=== PATIENT | male | born 1965 | race African-American/Black ===

== ENCOUNTER 2019-06-17 13:41 | Emergency (ER) | payer BC ==
[~2019-06-17] VITALS: Ht 190.5 cm; Wt 70.3 kg
[2019-06-17] MEDS ORDERED: ATRIPLA TABLET1 EACH PO (13:53)
[2019-06-17] MEDS ORDERED: PROAIR HFA8.5 GM INH (13:54)
[2019-06-17] MEDS ORDERED: IBUPROFEN 200200 M1 PO (13:54)
[2019-06-17] MEDS ORDERED: FLOVENT HFA12 G1 INH (13:54)
[2019-06-17 14:39] LABS: ABSOLUTE EOSINOPHILS 0.2 thou/uL (0.0-0.7); ABSOLUTE LYMPHOCYTES 2.2 thou/uL (0.8-5.3); ABSOLUTE MONOCYTES 0.3 thou/uL (0.0-1.2); ABSOLUTE NEUTROPHILS 1.2 thou/uL (1.6-8.1); BASOPHILS 1.2 %; EOSINOPHILS 5.9 %; HEMATOCRIT 38.8 % (42.0-52.0); HEMOGLOBIN 13.7 gm/dL (14.0-18.0); LYMPHOCYTES 53.6 %; MCH 37.2 pg (26.0-34.0); MCHC 35.4 g/dL (28.0-37.0); MCV 105.1 fL (80.0-100.0); MONOCYTES 8.6 %; MPV 8.2 fl. (7.2-11.1); NUCLEATED RBCS 0 /100WBC; PLATELET COUNT* 218 thou/uL (150-400); POLYS 30.7 %; RBC 3.69 mil/uL (4.50-6.00); RDW-CV 12.5 % (10.5-14.5)
[2019-06-17 14:47] LABS: CALCIUM 8.6 mg/dL (8.5-10.1); POTASSIUM 3.7 mmol/L (3.5-5.1)
[2019-06-17 14:55] LABS: TOTAL BILIRUBIN 0.3 mg/dL (<0.1-1.0)
[2019-06-17] MEDS ORDERED: TYLENOL WITH CO1 TA1 PO (15:02)
[2019-06-17] MEDS ORDERED: FLEXERIL PO (15:02)
[2019-06-17] MEDS ORDERED: LIDODERM1 EACH TOP (15:02)
[2019-06-17] MEDS ORDERED: LORATIDINE 10 M10 M1 PO (15:02)
[2019-06-17 15:10] VITALS: BP 129/78
--- NOTE | 2019-06-18 08:50 | EKG ---
[place] [address] ELECTROCARDIOGRAM REPORT Name: BLANCA HOPE Room: [facility]#: [id number] Admission: 06/17/19 Attend Phys: Discharge: 06/17/19 Date of : 67 Date of Service: 06/17/19 1348 Report #: [id number] THIS REPORT FOR: //name// [facility] ED Test Date: 2019-06-17 Test Time: 13:48:03 Pat Name: BLANCA HOPE Department: Room: Gender: Tearer: [facility] : 1965 Requested By: Vin Henriquez Order Number: [id number] MD: Vicente Gallo Measurements Intervals [place] Rate: 59 P: 53 ND: 164 QRS: 75 QRSD: 83 T: 67 QT: 380 QTc: 377 Interpretive Statements Sinus rhythm Consider left ventricular hypertrophy No previous ECG available for comparison Electronically Signed On 06-18-2019 8:48:42 CDT by Vicente Gallo [email or web address] <ELECTRONICALLY SIGNED> By: Vicente Gallo MD, [facility] 06/18/19 0848 1348 1348 Vicente Gallo MD, FACC /EPI
== END 2019-06-17 15:00 | disposition home or self-care (01) ==
LOC: M.ERS 13:41
PROVIDERS: Physician Assistant
DX: M54.6 Pain in thoracic spine (principal); M79.18 Myalgia, other site; J45.909 Unspecified asthma, uncomplicated

== ENCOUNTER 2019-07-03 08:58 | Emergency (ER) | payer BC ==
[~2019-07-03] VITALS: Ht 182.9 cm; Wt 71.7 kg
[~2019-07-03 08:58] MED LIST: ATRIPLA TABLET1 EACH PO; FLEXERIL PO; FLOVENT HFA12 G1 INH; IBUPROFEN 200200 M1 PO; LIDODERM1 EACH TOP; LORATIDINE 10 M10 M1 PO; PROAIR HFA8.5 GM INH; TYLENOL WITH CO1 TA1 PO
[2019-07-03 09:52] LABS: ABSOLUTE EOSINOPHILS 0.1 thou/uL (0.0-0.7); ABSOLUTE LYMPHOCYTES 1.2 thou/uL (0.8-5.3); ABSOLUTE MONOCYTES 0.3 thou/uL (0.0-1.2); ABSOLUTE NEUTROPHILS 2.2 thou/uL (1.6-8.1); BASOPHILS 1.2 %; EOSINOPHILS 2.8 %; HEMATOCRIT 42.5 % (42.0-52.0); HEMOGLOBIN 14.8 gm/dL (14.0-18.0); LYMPHOCYTES 30.9 %; MCH 36.5 pg (26.0-34.0); MCHC 34.7 g/dL (28.0-37.0); MONOCYTES 6.7 %; MPV 8.2 fl. (7.2-11.1); NUCLEATED RBCS 0 /100WBC; PLATELET COUNT* 229 thou/uL (150-400); POLYS 58.4 %; RBC 4.05 mil/uL (4.50-6.00); RDW-CV 12.6 % (10.5-14.5); WBC 3.8 thou/uL (4.0-11.0)
[2019-07-03 10:05] LABS: CALCIUM 8.7 mg/dL (8.5-10.1); CREATININE 1.1 mg/dL (0.6-1.3); POTASSIUM 3.9 mmol/L (3.5-5.1)
[2019-07-03 10:09] LABS: ALBUMIN 4.1 g/dL (3.4-5.0); TOTAL BILIRUBIN 0.3 mg/dL (<0.1-1.0); TOTAL PROTEIN 7.5 g/dL (6.4-8.2)
[2019-07-03] MEDS ORDERED: ZOFRAN ODT4 MG DISSOLVE (10:22)
[2019-07-03 10:41] VITALS: BP 136/65
--- NOTE | 2019-07-03 14:34 | EKG ---
[place] [address] ELECTROCARDIOGRAM REPORT Name: BLANCA HOPE Room: [facility]#: [id number] Admission: 07/03/19 Attend Phys: Discharge: 07/03/19 Date of : 67 Date of Service: 07/03/19 0934 Report #: [id number] THIS REPORT FOR: //name// [facility] ED Test Date: 2019-07-03 Test Time: 09:34:41 Pat Name: BLANCA HOPE Department: Room: Gender: [employer]: [facility] [place] : 1965 Requested By: Carlos Manuel Voss Order Number: [id number] MD: Vicente Gallo Measurements Intervals [place] Rate: 53 P: 24 RI: 176 QRS: 67 QRSD: 85 T: 56 QT: 424 QTc: 399 Interpretive Statements Sinus rhythm Consider left ventricular hypertrophy Baseline wander in lead(s) V3 Compared to ECG 06/17/2019 13:48:03 No significant changes Electronically Signed On 07-03-2019 14:32:43 CDT by Vicente Gallo [email or web address] <ELECTRONICALLY SIGNED> By: Vicente Gallo MD, [facility] 07/03/19 1432 0934 0934 Vicente Gallo MD, [facility] /EPI
== END 2019-07-03 10:41 | disposition home or self-care (01) ==
LOC: M.ERS 08:58
PROVIDERS: Emergency Medicine Emergency Medical Services
DX: R55 Syncope and collapse (principal); R11.0 Nausea; B20 Human immunodeficiency virus [HIV] disease; J45.909 Unspecified asthma, uncomplicated; Z91.048 Other nonmedicinal substance allergy status